=== PATIENT | female | born 1995 | race Caucasian/White ===

== ENCOUNTER → 2021-04-28 09:30 | Outpatient (BNVA) | payer SELFPAY | DX: Z76.89 Persons encountering health services in other specified circumstances (principal) ==

== ENCOUNTER 2025-04-25 11:11 | Outpatient (AMB) | payer OTHER, SELFPAY ==
--- NOTE | 2025-04-25 11:12 | AM.OFFWIN_ITS ---
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 Intake Note: left ear pain since last night Allergies No Known Allergies Allergy (Verified 04/25/25 11:12) Do you need a note to return to daycare/school/sports/work: No HPI HPI Comments History of Present Illness Details 29 y/o Female patient who presents to [facility] in clinic with c/o left Ear pain since last night. Denies fevers, chills, nausea or vomiting. [facility] Medical History (Updated 04/25/25 @ 12:28 by Courtney Singh NP) Otitis media Review of Systems Const All systems reviewed & are unremarkable except as noted in HPI and below Physical Exam Vital Signs: Last Vital Signs Temp 98.1 F 04/25/25 11:15 Pulse 71 04/25/25 11:15 BP 108/84 04/25/25 11:15 Pulse Ox 99 04/25/25 11:15 Oxygen Delivery Method Room Air 04/25/25 11:15 BMI result Body Mass Index 33.2 Const General: no acute distress Nutritional Appearance: overweight Orientation/consciousness: patient oriented x3 HEENT Head: Yes normocephalic Ears: external ears normal and TM abnormal bulging on the left, wth effusion purulent, erythematous on the left and retracted on the left; not perforated General nose exam: Normal external nose present Face and sinus: Yes sinuses nontender Mouth: moist mucous membranes Neuro General: patient oriented x3, gait normal and moves all extremities Psych Speech and movement: Normal speech and movement present Assessment & Plan Assessment & Plan (1) Otitis media: Code(s): H66.90 - Otitis media, unspecified, unspecified ear Qualifiers: Otitis media type: suppurative Chronicity: acute Laterality: left Spontaneous tympanic membrane rupture: without spontaneous rupture Plan: Pt has an Ear infection left Ear. Ordered Otic Abx for 7 days Advised to take NSAIDs for pain relief. Medications: New ciprofloxacin-dexamethasone 0.3-0.1 % 4 drps otic (ears) BID 7.5 mL 0RF 7 days H66.90 - Otitis media, unspecified, unspecified ear Coding Level of Care Code Est Pt Level 4 (88331) Diagnoses Otitis media H66.90 Otitis media type: suppurative Chronicity: acute Laterality: left Spontaneous tympanic membrane rupture: without spontaneous rupture Time Spent (min) 20
[2025-04-25 11:15] VITALS: BP 108/84; PULSE 71; TEMP 36.7; O2SAT 99; BMI 33.2
--- OUTSIDE RECORDS SUMMARY | 2025-04-25 12:52 | XMS_ITS | Patient Health Record ---
Author Organization [email or web address] [facility] Address [address] [place] [address] Care Team Providers Care Precision Assembler Bench Name Role Phone Elizabeth Estevez Unavailable [phone] Reason For Referral No Information Medications Medication SIG (Take, Route, Frequency, Duration) Notes Start Date End Date Status Ortho Tri-Cyclen Lo 0.18/0.215/0.25 MG-25 MCG 1 tablet Orally Once a day; Duration: 84 days Active Social History Alcohol Screen (Audit-C) Question Answer Notes Did you have a drink contain ing alcohol in the past year? Yes How often did you have a dri nk containing alcohol in the past year? 2 to 3 times a week (3 points) How many drinks did you have on a typical day when you were drinking in the past year? 3 or 4 drinks (1 point) Points 4 Interpretation Positive Sexual History Question Answer Notes Had sex in the past 12 months (vaginal, oral, or anal)? Yes with Men only Prevention strategies discussed: Other Section Notes: Single student never smoked no etoh no recreational drugs Problems Problem Type SNOMED Code ICD Code Onset Dates Problem Status W/U Status Risk Notes Problem Asthma (128073668) Asthma (493) Active confirmed Problem Other acne (706.1) Active confirmed Plan Of Treatment Pending Test Test Name Order Date Ultrasound : Pelvic 02/15/2017 THIN PREP,HPV IF ASCUS, CT/GC (21-29YR) 11/28/2017 Insurance Providers Payer Name Payer Address Payer Phone Subscriber Number Group Number Insured Name Patient Relationship to Insured Coverage Start Date Coverage End Date [employer] [address] [place], [place] [address] [phone] [id number] LEWIS Child - Insured has Financial Responsibility Medical (General) History Medical History History ICD Code Other acne L70.8 Other asthma J45.998 Surgical History Surgery Date(Month/Year) [place] teeth extraction
--- OUTSIDE RECORDS SUMMARY | 2025-04-25 12:52 | XMS_ITS | Clinical Summary ---
Author Organization [facility] Address [address] [place] [address] Care Team Providers Care Pbx Installer Name Role Phone Unavailable Primary Care Provider Unavailabl e Social History Tobacco Use Types Packs/Day Years Used Date Smoking Tobacco: Never Assessed Sex and Gender Information Value Date Recorded Sex Assigned at Not on file Gender Identity Not on file Sexual Orientation Not on file Plan of Treatment Health Maintenance Due Date Last Done Comments Hepatitis B Vaccines (1 of 3 - 3-dose series) 1994 Hepatitis C Screening 1994 COVID-19 Vaccine (#1) 1994 Depression Screening 2006 Preventative Health Evaluation 2012 DTap / Tdap / Td (1 - Tdap) 2013 Cervical Cancer Screening (P ap Smear) 2015 Influenza Vaccine (#1) 2025 Pneumococcal Vaccine Aged Out No long er eligible based on patient's age to complete this topic RSV Ped < 20 months Aged Out No longe r eligible based on patient's age to complete this topic
--- OUTSIDE RECORDS SUMMARY | 2025-04-25 12:52 | XMS_ITS | Clinical Summary ---
Author Organization [facility] Address [address] [place] [id number] Phone Care Team Providers Care Manager Progressive Care Name Role Phone Dang Espinoza MD Primary Care Provider [phone] Allergies No known active allergies Medications , 1 mg-20 mcg (21)/75 mg (7) per tablet 02/01/2023 Active therapeutic multivitamin tablet Take 1 tablet by mouth daily. Active Active Problems Problem Noted Date Diagnosed Date Functional diarrhea 03/19/2024 Assessment & Plan (03/19/2024 12:47 PM EDT): H&P are c/w IBS and we discussed what this is and how it is diagnosed. She does meet [place] IV criteria but needs blood & stool testing to r/o organic etiologies before a firm dx can be made. Labs ordered today as noted. If all negative, recommend EC peppermint oil as a first line tx as she finds her abdominal discomfort to be the most bothersome sx. Stress reduction is also helpful but a much more complex question to tackle. Virilization 03/19/2024 Assessment & Plan (03/19/2024 12:50 PM EDT): Reviewed what PCOS is and [place] criteria for dx. Cannot make this dx right now as she has never had natural menstrual cycles for long enough to know if oligomenorrhea is present and a TVUS is unlikely to show polycystic ovaries because her TENISHA's suppress ovulation. I would not recommend d/c pills solely for this purpose but if/when she wants to in the future that would be a good time for an US and more data collection about her cycles. Meanwhile spironolactone can certainly be resumed regardless of dx as she did find it helpful for suppressing terminal hair growth. She recalls taking 100 mg PO daily. Will check baseline BMP now and again when I see her next after resuming use to monitor for hyperkalemia. Injury of tendon of intrinsic muscle of thumb Assessment & Plan (03/09/2024 1:16 PM EDT): Increased laxity and weakness of thumb >2 years after hyperextension injury certainly suggestive of a severe tendon sprain vs rupture and I am referring her back to her hand surgeon. Juvenile idiopathic scoliosis of thoracolumbar r egion 03/09/2024 Assessment & Plan (03/09/2024 1:20 PM EDT): Continues to periodically have back pain despite diligently following instructions for strength training. Referred back to [facility]; XR not ordered as I'm sure they'll want to do this in house. Bilateral hand numbness 03/09/2024 Assessment & Plan (03/09/2024 1:19 PM EDT): Shoulder exam largely unremarkable (except for the asymmetry which may well be 2/2 scoliosis) and her sx most often occur with wrists and shoulders in neutral position and elbows flexed and I wonder if she actually injured her elbows and might be experiencing an ulnar nerve problem rather than the sequelae of a shoulder injury as she initially thought. As often happens after a fall, she can't remember exactly what hit the ground how or when, and it's plausible the elbows took an impact. I'd like her to discuss this with Dr Mcduffie as well. If he thinks it's a shoulder problem I can send her to a different orthopedist. Immunizations No known immunizations Family History Medical History Relation Comments Depression Father Breast cancer Maternal Aunt Hyperlipidemia Maternal Grandfather Breast cancer Mother late 40s; BrCa n egative Hyperlipidemia Paternal Grandfather Arthritis Paternal Grandmother rheumatoid Breast cancer Unspecified MGA (several rec urrences; ultimately ) Relation Status Comments Father Maternal Aunt Maternal Grandfather Mother Paternal Grandfather Paternal Grandmother Unspecified Social History Tobacco Use Types Packs/Day Years Used Date Smoking Tobacco: Never Smokeless Tobacco: Never Tobacco Cessation:Counseling Given: Not Answered Alcohol Use Standard Drinks/Week Comments Yes 0 (1 standard drink = 0.6 oz pur e alcohol) 3 drinks a month at most Child or Family Care Answer Date Record ed Do you have problems with on e of the following making it difficult for you to work, study, or receive health care? No 03/09/2024 Education Answer Date Recorded Are you interested in help w ith more adult education (for example, completing high school, GED, job training, learning the Malt[place] language, technical skills, or developing parenting skills)? No 03/09/2024 Are you concerned about learning? Not on file 03/09/2024 No 03/09/2024 Yes 03/09/2024 Food Answer Date Recorded Within the past 6 months we worried whether our food would run out before we got money to buy more. Never True 03/09/2024 Within the past 6 months the food we bought just didn't last and we didn't have enough money to get more. Never True Residential Stability Answer Date Recor ded What is your housing situation today? I have souleymane sing 03/09/2024 How many times have you moved in the past 12 tue ths? One time 03/09/2024 Paying for Meds Answer Date Recorded Do you have trouble paying for medicines? No 03/09/2024 Paying Utility Bills Answer Date Record ed Do you have trouble paying your heating or elect ricity bill? No 03/09/2024 Transportation Answer Date Recorded Has the lack of transportati on kept you from medical appointments or from getting medications? No 03/09/2024 Unemployment Answer Date Recorded Are you currently unemployed or working on a part-time or temporary basis, and looking for work? No 03/09/2024 Digital Access Answer Date Recorded No 03/09/2024 Yes 03/09/2024 Do you have reliable internet access at home? Ye s 03/09/2024 Do you have a device (e.g., phone, tablet, computer) with a working camera? Yes 03/09/2024 Intimate Partner Violence Answer Date R ecorded Denied Basic Needs Not on file 03/09/2024 In the past 12 months have y ou been in a relationship with a person who hurts, threatens, or tries to control you? No 03/09/2024 Worried food would run out Not on file 03/09 In the past 12 months have y ou been in a relationship with a person who hurts, threatens, or tries to control you? No 03/09/2024 Comments No Sex and Gender Information Value Date Recorded Sex Assigned at Not on file Legal Sex Female 3:41 PM EDT Gender Identity Not on file Sexual Orientation Not on file Last Filed Vital Signs Vital Sign Reading Time Taken Comments Blood Pressure 118/70 05/14/2024 9:43 AM EDT Pulse 74 05/14/2024 9:43 AM EDT Temperature 36.4 C (97.5 F) 03/19/2024 9:30 AM EDT Respiratory Rate 13 03/30/2023 10:00 AM EDT Oxygen Saturation 99% 05/14/2024 9:43 AM EDT Inhaled Oxygen Concentration - - Weight 82.8 kg (182 lb 9.6 oz) 03/19/2024 9:30 A M EDT Height 175.3 cm (5' 9 ) 05/14/2024 9:43 AM EDT Body Mass Index 26.97 03/09/2024 9:43 AM EDT Plan of Treatment Health Maintenance Due Date Last Done Comments Adult Td,Tdap Booster 1995 HEPATITIS C SCREENING 2012 HIV ONE-TIME SCREENING (18-6 5 YEARS) 2012 COVID-19 VACCINE (2023-2 5 season) 2024 DEPRESSION SCREENING 03/09/2025 03/09/2024 PAP SMEAR 05/14/2027 05/14/2024 SMOKING STATUS SCREENING (On ce After 26 Yrs) Completed 05/14/2024 HEPATITIS A VACCINES Aged Out No long er eligible based on patient's age to complete this topic HIB VACCINES Aged Out No longer eligi ble based on patient's age to complete this topic MENINGOCOCCAL VACCINES (ACWY) Aged Out No longer eligible based on patient's age to complete this topic MENINGOCOCCAL VACCINES (B) Aged Out N o longer eligible based on patient's age to complete this topic PNEUMOCOCCAL VACCINES (0-49 years) Aged Out No longer eligible based on patient's age to complete this topic Medical Devices Implanted Type Area Electrical/Instrument Technician Device Identifier Shelf Expiration Date Model / Serial / Lot K-Wire Bone 6 K .035 Double Trocar Single Pk/[id number] - [id number] Implanted:Qty : 3 on 03/30/2023 by Juan Mcduffie MD at [facility] Right: Finger [employer] [id number] / / Description:pinky Procedures Procedure Name Priority Date/Time Associated Diagnosis Comments PAP TEST Routine 05/14/2024 12:00 AM EDT from Last 3 Months or Most Recently Relevant to Health Maintenance Results * Pap Test (05/14/2024 12:00 AM EDT) 05/14/2024 05/15/2024 10: 43 AM EDT Narrative SEE NARRATIVE - 05/17/2024 2:05 [place] [address] Statistics Teacher: Letty Tomas MD INTAKE ASSESSOR Cytology Report FINAL DIAGNOSIS A. PAP SMEAR (THIN PREP) CE: SPECIMEN ADEQUACY: Satisfactory for evaluation; transformation zone present. INTERPRETATION: NEGATIVE FOR INTRAEPITHELIAL LESION OR MALIGNANCY. Fungal organisms morphologically consistent with Cheyanne species. This specimen was analyzed by the automated ThinPrep Imaging System (? Skinny.) and the selected dc were reviewed by a pie crimping machine operator. Electronically Signed Out By: TALA Ponce(ASCP) The Pap test is a screening test primarily for squamous cancers and precursors and has associated false-negative and false-positive results. New technologies such as liquid-based preparations may decrease but will not eliminate all false-negative results. Regular sampling and follow-up of unexplained clinical signs and symptoms are recommended to minimize false negative results. CLINICAL HISTORY Date of Last Menstrual Period: 3-4 WKS AGO Contraceptive History: BCPs Other Clinical Conditions: Screening Pap SPECIMEN SOURCE A: PAP SMEAR (THIN PREP) CE Patient Name: GRISELDA MUNGUIA : 1995 (Age: 28) Sex: F Institution: [facility] Location: [facility] Date of Collection: 05/14/2024 Date of Reported: 05/17/2024 14:05 Results to: Dang Espinoza MD us Dang Espinoza MD CYTOLOGY ORDERABLES Final Re sult SEE NARRATIVE from Last 3 Months or Most Recently Relevant to Health Maintenance Insurance [employer] Member Subscriber Plan / Payer (Ef fective 2023-Present) Name:Ezra Grsielda Relation to Subscriber:Self Name:EzraGriselda gaspar Payer ID:[id number] (NAIC) Type:PPO Address: [address] [employer] Member Subscriber Plan / Payer (Ef fective 2023-Present) Name:EzraGriselda gaspar Relation to Subscriber:Self Name:EzraGriselda gaspar Payer ID:[id number] (NAIC) Type:PPO Address: [place] [phone] [employer] Member Subscriber Plan / Payer (Ef fective 2023-Present) Name:Griselda Munguia Relation to Subscriber:Self Name:Griselda Munguia Payer ID:[id number] (NA) Type:PPO Address: [place] [phone] [employer] Member Subscriber Plan / Payer (Ef fective 2023-) Name:Griselda Munguia Relation to Subscriber:Self Name:Griselda Munguia Payer ID:[id number] (NAIC) Type:PPO Address: [place] [phone] [employer] Advance Directives For more information, please contact: [phone] (9AM - 5PM [place], Tuesday-Tuesday) * Full Code (Latest Code Status on File) Date Activated Date Inactivated Comments 03/30/2023 7:14 AM Question Answer Comments Code Status Confirmed With: Patient Care Teams Manager Progressive Care Relationship Specialty Start Date End Date Dang Espinoza MD [address] [place], [place] [id number] [email or web address] PCP - General Family Medicine 03/09/24 Additional Source Comments The information contained in this document represents components of the legal health record. It is not the complete legal health record.[facility]
== END 2025-04-25 12:26 | disposition home or self-care (01) ==
PROVIDERS: Visit Provider Nurse Practitioner Family
DX: H66.90 Otitis media, unspecified, unspecified ear (principal)